=== PATIENT | male | born 1965 | race Caucasian/White ===

== ENCOUNTER 2019-04-25 06:00 | Emergency (ER) | payer SELFPAY ==
[~2019-04-25] VITALS: Ht 172.7 cm; Wt 73.5 kg
[2019-04-25 06:00] VITALS: BP 136/86
--- NOTE | 2019-04-25 06:00 | NUR ---
PT BIB [facility], PREBOOK. PT TAKEN TO [facility]AIR [facility]
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
--- NOTE | 2019-04-25 06:35 | NUR ---
SEEN AND EXAMINED BY HODA.
[2019-04-25 06:42] VITALS: BP 136/86
--- NOTE | 2019-04-25 06:42 | NUR ---
PATIENT BIB [facility] POLICE DEPT. PATIENT EXAMINED BY DR. CORTÉS. PATIENT MEDICALLY CLEARED AND RELEASED IN CUSTODY IN STABLE CONDITION. ORIGINAL PRE-BOOK FORM GIVEN TO [facility] OFFICER Aram ROJAS
== END 2019-04-25 06:42 ==
LOC: MED 06:00
DX: Z02.89 Encounter for other administrative examinations (principal); Z88.5 Allergy status to narcotic agent; V89.2XXA Person injured in unspecified motor-vehicle accident, traffic, initial encounter; Y93.89 Activity, other specified; Y92.410 Unspecified street and highway as the place of occurrence of the external cause; Y99.8 Other external cause status
CPT/HCPCS: 99283